=== PATIENT | female | born 1995 | race Hispanic/Latino ===

== ENCOUNTER 2018-07-18 04:16 | Inpatient (IN) | payer MEDICAID, OTHER ==
[2018-07-18 04:55] LABS: Hematocrit 40.4 % (30.3-42.9); Hemoglobin 13.9 gm/dl (10.1-14.3); Mean Corpuscular HGB Conc 34 % (30-34); Mean Corpuscular Volume 89 fl (79-97); Platelet Count 327 K/mm3 (140-440); Red Blood Count 4.56 M/mm3 (3.65-5.03); Red Cell Distribution Width 13.5 % (13.2-15.2)
[2018-07-18 05:03] LABS: Bilirubin,Urine NEG (Negative); Blood,Urine SM (Negative); Color,Urine Yellow (Yellow); Mucus,Urine 3+ /HPF
[2018-07-18 05:07] LABS: Benzodiazepines Screen,Urine PRESUMPTIVE NEGATIVE; Cannabinoid Screen,Urine PRESUMPTIVE NEGATIVE; Cocaine Screen,Urine PRESUMPTIVE NEGATIVE; Methadone Screen,Urine PRESUMPTIVE NEGATIVE
[2018-07-18 05:10] LABS: BUN/Creatinine Ratio 12; Blood Urea Nitrogen 7 mg/dL (7-17); Calcium 8.9 mg/dL (8.4-10.2); Hemolysis Index 4
[2018-07-18 05:23] LABS: Amphetamine Screen,Urine PRESUMPTIVE POSITIVE; Opiate Screen,Urine PRESUMPTIVE POSITIVE
--- NOTE | 2018-07-18 07:03 | Emergency Department Report ---
ED Female HPI - General Chief complaint: Skin/Abscess/Foreign Body Stated complaint: FB IN VAGINA Time Seen by Provider: 07/18/18 06:59 Source: patient, EMS Mode of arrival: Ambulatory Limitations: No Limitations - History of Present Illness Initial comments: 22-year-old female is in police custody for purportedly as she told the police inserting a bag filled with heroin in her vagina. The patient herself is very vague about when this was done and if it is still there. She denies heroin or methamphetamine use herself. However on my encounter she has a heart rate which is in the 130s and persistent. She is not complaining of any specific symptoms. She states that she is 18 weeks and has not gone to an OB doctor yet. The patient had screening labs and an ultrasound ordered before I came. I called the ultrasound department to advise them that a transvaginal probe should not be utilized. Are you Now?: Yes Associated Symptoms: denies other symptoms - Related Data Allergies Allergy/AdvReac Type Severity Reaction Status Date / Time No Known Allergies Allergy Unverified 07/18/18 04:31 ED Review of Systems ROS: Stated complaint: FB IN VAGINA Other details as noted in HPI Constitutional: denies: chills, fever Eyes: denies: eye pain, eye discharge, vision change ENT: denies: ear pain, throat pain Respiratory: denies: cough, shortness of breath, wheezing Cardiovascular: denies: chest pain, palpitations Endocrine: no symptoms reported Gastrointestinal: denies: abdominal pain, nausea, diarrhea Genitourinary: denies: urgency, dysuria, discharge Musculoskeletal: denies: back pain, joint swelling, arthralgia Skin: denies: rash, lesions Neurological: denies: headache, weakness, paresthesias Psychiatric: denies: anxiety, depression Hematological/Lymphatic: denies: easy bleeding, easy bruising ED Past Medical Hx - Past Medical History Previous Medical History?: Yes Hx Asthma: Yes - Surgical History Past Surgical History?: No - Social History Smoking Status: Never Smoker Substance Use Type: None ED Physical Exam - General Limitations: No Limitations General appearance: alert, in no apparent distress - Head Head exam: Present: atraumatic, normocephalic - Eye Eye exam: Present: normal appearance. Absent: scleral icterus - ENT ENT exam: Present: mucous membranes moist - Neck Neck exam: Present: normal inspection. Absent: tenderness, meningismus - Respiratory Respiratory exam: Present: normal lung sounds bilaterally. Absent: respiratory distress - Cardiovascular Cardiovascular Exam: Present: normal rhythm, tachycardia. Absent: systolic murmur, diastolic murmur, rubs, gallop - GI/Abdominal GI/Abdominal exam: Present: soft, normal bowel sounds. Absent: distended, tenderness, guarding, rebound - External exam: Present: normal external exam Speculum exam: Present: vaginal discharge, cervical discharge Bi-manual exam: Present: normal bi-manual exam, other (no foreign body found) - Extremities Exam Extremities exam: Present: normal inspection - Back Exam Back exam: Present: normal inspection - Neurological Exam Neurological exam: Present: alert, oriented X3, CN II-XII intact. Absent: motor sensory deficit - Psychiatric Psychiatric exam: Present: normal affect, normal mood - Skin Skin exam: Present: warm, dry, intact, normal color. Absent: rash ED Course Vital Signs 07/18/18 04:24 Temperature 98.6 F Pulse Rate 117 H Respiratory 15 Rate O2 Sat by Pulse 98 Oximetry - Reevaluation(s) Reevaluation #1: The officer attended the examination. This was for chain of custody if a spe cimen was found. There was no foreign body found. I spoke to Dr. Everett who agreed to follow the patient along. He had no specific recommendations at this point. I spoke to the hospitalist who assigned the patient to Dr. Solomon. The patient is admitted to the hospitalist service. 07/18/18 08:34 ED Medical Decision Making - Lab Data Result diagrams: 07/18/18 04:40 07/18/18 04:40 Laboratory Results - last 24 hr 07/18/18 07/18/18 07/18/18 04:40 04:40 04:40 WBC 11.3 H RBC 4.56 Hgb 13.9 Hct 40.4 MCV 89 MCH 31 MCHC 34 RDW 13.5 Plt Count 327 Sodium 137 Potassium 4.2 Chloride 102.7 Carbon Dioxide 22 Anion Gap 17 BUN 7 Creatinine 0.6 L Estimated GFR > 60 BUN/Creatinine Ratio 12 Glucose 86 Calcium 8.9 Total Creatine Kinase 30 HCG, Quant 84328 H Urine Color Urine Turbidity Urine pH Ur Specific [place] Urine Protein Urine Glucose (UA) Urine Ketones Urine Blood Urine Nitrite Urine Bilirubin Urine Urobilinogen Ur Leukocyte Esterase Urine WBC (Auto) Urine RBC (Auto) U Epithel Cells (Auto) Urine Mucus Salicylates Urine Opiates Screen Urine Methadone Screen Acetaminophen Ur Barbiturates Screen Ur Phencyclidine Scrn Ur Amphetamines Screen U Benzodiazepines Scrn Urine Cocaine Screen U Marijuana (THC) Screen Drugs of Abuse Note Plasma/Serum Alcohol 07/18/18 07/18/18 07/18/18 04:40 04:40 04:40 WBC RBC Hgb Hct MCV MCH MCHC RDW Plt Count Sodium Potassium Chloride Carbon Dioxide Anion Gap BUN Creatinine Estimated GFR BUN/Creatinine Ratio Glucose Calcium Total Creatine Kinase HCG, Quant Urine Color Urine Turbidity Urine pH Ur Specific [place] Urine Protein Urine Glucose (UA) Urine Ketones Urine Blood Urine Nitrite Urine Bilirubin Urine Urobilinogen Ur Leukocyte Esterase Urine WBC (Auto) Urine RBC (Auto) U Epithel Cells (Auto) Urine Mucus Salicylates < 0.3 L Urine Opiates Screen Urine Methadone Screen Acetaminophen < 5.0 L Ur Barbiturates Screen Ur Phencyclidine Scrn Ur Amphetamines Screen U Benzodiazepines Scrn Urine Cocaine Screen U Marijuana (THC) Screen Drugs of Abuse Note Plasma/Serum Alcohol < 0.01 07/18/18 07/18/18 Unknown Unknown WBC RBC Hgb Hct MCV MCH MCHC RDW Plt Count Sodium Potassium Chloride Carbon Dioxide Anion Gap BUN Creatinine Estimated GFR BUN/Creatinine Ratio Glucose Calcium Total Creatine Kinase HCG, Quant Urine Color Yellow Urine Turbidity Slightly-cloudy Urine pH 5.0 Ur Specific [place] 1.025 Urine Protein 100 mg/dl Urine Glucose (UA) Neg Urine Ketones Neg Urine Blood Sm Urine Nitrite Neg Urine Bilirubin Neg Urine Urobilinogen 4.0 Ur Leukocyte Esterase Mod Urine WBC (Auto) 25.0 H Urine RBC (Auto) 6.0 U Epithel Cells (Auto) < 1.0 Urine Mucus 3+ Salicylates Urine Opiates Screen Presumptive positive Urine Methadone Screen Presumptive negative Acetaminophen Ur Barbiturates Screen Presumptive negative Ur Phencyclidine Scrn Presumptive negative Ur Amphetamines Screen Presumptive positive U Benzodiazepines Scrn Presumptive negative Urine Cocaine Screen Presumptive negative U Marijuana (THC) Screen Presumptive negative Drugs of Abuse Note Disclamer Plasma/Serum Alcohol - EKG Data EKG shows normal: sinus rhythm, axis, intervals, QRS complexes, ST-T waves Rate: tachycardia - EKG Data Interpretation: nonspecific ST-T wave rocio Critical care attestation.: If time is entered above; I have spent that time in minutes in the direct care of this critically ill patient, excluding procedure time. ED Disposition Clinical Impression: 18 weeks gestation of Overdose Qualifiers: Encounter type: initial encounter Injury intent: accidental or unintentional Qualified Code(s): T50.901A - Poisoning by unspecified drugs, medicaments and biological substances, accidental (unintentional), initial encounter Vaginitis Qualifiers: Chronicity: acute Qualified Code(s): N76.0 - Acute vaginitis UTI (urinary tract infection) Qualifiers: Urinary tract infection type: site unspecified Hematuria presence: without hematuria Qualified Code(s): N39.0 - Urinary tract infection, site not specified Disposition: 09 OP ADMIT IP TO THIS HOSP Is pt being admited?: No Does the pt Need Aspirin: No Condition: Stable Referrals: PRIMARY CARE, [Primary Care Provider] - 3-5 Days Time of Disposition: 08:36
[2018-07-18] MEDS ORDERED: NACL 0.9% 1000 ML 1,000 ML IV ONE ×2 (07:37→08:25)
[2018-07-18 08:21] LABS: Creatine Kinase MB 1.6 ng/mL (0.0-4.0)
[2018-07-18 08:22] LABS: INR 0.88 (0.87-1.13)
[2018-07-18 08:23] LABS: Alanine Aminotransferase 13 units/L (7-56); Albumin 3.3 g/dL (3.9-5); Partial Thromboplastin Time 27.4 Sec. (24.2-36.6)
[2018-07-18 08:34] LABS: Bilirubin,Direct < 0.2 mg/dL (0-0.2)
--- NOTE | 2018-07-18 08:37 | Ultrasound Report ---
EXAM: US OB >= 14 WEEKS FETUS HISTORY: TECHNIQUE: Birch scale imaging, duplex Doppler and color flow Doppler imaging are performed with a cur vilinear transducer. COMPARISON: None available. FINDINGS: There is a single IUP in transverse lie, with head to the maternal left side. The estimated fet al heart rate is 156 beats per minute. No gross anomaly is seen at this time. The lateral ventr icles, dorsal spine, stomach, kidneys, urinary bladder, diaphragm, four-chamber heart, three-vessel c ord, and cord insertion are seen. The following biometric measurements are obtained: BPD 3.94 cm (18 weeks 0 days ) HC 15.56 cm (18 weeks 3 days) AC 12.66 cm (18 weeks 2 days ) FL 2.62 cm (18 weeks 0 days ) The estimated composite gestational age is 18 weeks, 1 day, plus/minus standard deviation. The LEONEL is 12/18/2018. The biometric ratios are within normal limits: Cephalic index 85.9; HC/AC 1.23; FL/BPD 66 .5; FL/HC 16.8; FL/AC 20.7. There is a fundal placenta, without evidence for placenta previa or abruption. The cervical length is mildly foreshortened, measuring approximately 2.8 cm. There is no evidence for cervical incompetence . The amniotic fluid volume is within normal limits; largest AP fluid pocket measures 4.2 cm. The right ovary is within normal limits, measuring approximately 2.1 cm x 1.6 cm x 2.1 cm. There is a n approximately 1.1 cm x 5 mm x 1 cm right ovarian cyst. The left ovary is not visualized. No free fl uid is seen in the pelvis. IMPRESSION: 1. Single live IUP in transverse presentation, with head to the maternal left side. 2. Estimated gestational age of 18 weeks, 1 day plus/minus standard deviation. The LEONEL is 12/18/2018. 3. The estimated heart rate is 156 beats per minute. 4. No gross anomaly is seen at this time (Limited views of anatomy). 5. Fundal placenta without evidence for placental previa or abruption. 6. The amniotic fluid volume is within normal limits. 7. The cervical length is mildly foreshortened, measuring 2.8 cm; no evidence for cervical incompete nce. 8. Approximately 1.1 cm x 5 mm x 1 cm right ovarian cyst; otherwise unremarkable right ovary. Left ov mickey not visualized. 9. No free fluid is seen in the pelvis. This document is electronically signed by Rosita Grijalva MD., July 18 2018 08:35:10 AM ET
[2018-07-18] MEDS ORDERED: ZITHROMAX PO ONE (09:32)
[2018-07-18] MEDS ORDERED: ROCEPHIN/NS 1 GM/50 ML 1 GM/50 ML BAG IV ONE ×2 (09:32→11:34)
--- NOTE | 2018-07-18 09:37 | History and Physical Report ---
History of Present Illness Date of examination: 07/18/18 Date of admission: 07/18/18 Chief complaint: Police custody evaluation for drug/heroin inserted in her vagina History of present illness: This is a 22-year-old female who presents to the emergency department in police custody for reportedly inserting a bag filled with heroin in her vagina. The patient herself is very vague about when this was done and if it is still there. ER physician examined patient and noted that there were no contents/heroin in her vaginal cavity. The patient denies any heroin or methamphetamine use. Patient states that she is around her boyfriend and friends that smoked 2 drugs and may have acquired some secondhand contact. Patient denies any chest pain or shortness of breath. No headache or visual disturbances. Patient states that she is here only because of police custody. ER physician reports heart rate persistently in the 130s. Past History Past Medical History: No medical history Past Surgical History: No surgical history Social history: no significant social history Family history: no significant family history Medications and Allergies Allergies Allergy/AdvReac Type Severity Reaction Status Date / Time No Known Allergies Allergy Unverified 07/18/18 04:31 Active Meds: Active Medications Sodium Chloride (Nacl 0.9% 1000 Ml) 1,000 mls @ 999 mls/hr IV BOLUS ONE Stop: 07/18/18 09:25 Review of Systems All systems: negative Exam - Constitutional Vitals: Temp Pulse Resp BP Pulse Ox 98.6 F 117 H 15 98 07/18/18 04:24 07/18/18 04:24 07/18/18 04:24 07/18/18 04:24 General appearance: Present: no acute distress, well-nourished - EENT Eyes: Present: PERRL ENT: hearing intact, clear oral mucosa - Neck Neck: Present: supple, normal ROM - Respiratory Respiratory effort: normal Respiratory: bilateral: CTA - Cardiovascular Heart Sounds: Present: S1 & S2. Absent: rub, click - Extremities Extremities: pulses symmetrical, No edema Peripheral Pulses: within normal limits - Abdominal General gastrointestinal: Present: soft, non-tender, non-distended, normal bowel sounds Female genitourinary: Present: normal - Integumentary Integumentary: Present: clear, warm, dry - Musculoskeletal Musculoskeletal: gait normal, strength equal bilaterally - Psychiatric Psychiatric: appropriate mood/affect, intact judgment & insight - Neurologic Neurologic: CNII-XII intact, moves all extremities Results - Labs CBC & Chem 7: 07/18/18 04:40 07/18/18 04:40 Labs: Laboratory Last Values WBC 11.3 K/mm3 (4.5-11.0) H 07/18/18 04:40 RBC 4.56 M/mm3 (3.65-5.03) 07/18/18 04:40 Hgb 13.9 gm/dl (10.1-14.3) 07/18/18 04:40 Hct 40.4 % (30.3-42.9) 07/18/18 04:40 MCV 89 fl (79-97) 07/18/18 04:40 MCH 31 pg (28-32) 07/18/18 04:40 MCHC 34 % (30-34) 07/18/18 04:40 RDW 13.5 % (13.2-15.2) 07/18/18 04:40 Plt Count 327 K/mm3 (140-440) 07/18/18 04:40 PT 12.5 Sec. (12.2-14.9) 07/18/18 07:52 INR 0.88 (0.87-1.13) 07/18/18 07:52 APTT 27.4 Sec. (24.2-36.6) 07/18/18 07:52 Sodium 137 mmol/L (137-145) 07/18/18 04:40 Potassium 4.2 mmol/L (3.6-5.0) 07/18/18 04:40 Chloride 102.7 mmol/L (98-107) 07/18/18 04:40 Carbon Dioxide 22 mmol/L (22-30) 07/18/18 04:40 Anion Gap 17 mmol/L 07/18/18 04:40 BUN 7 mg/dL (7-17) 07/18/18 04:40 Creatinine 0.6 mg/dL (0.7-1.2) L 07/18/18 04:40 Estimated GFR > 60 ml/min 07/18/18 04:40 BUN/Creatinine Ratio 12 % 07/18/18 04:40 Glucose 86 mg/dL (65-100) 07/18/18 04:40 Lactic Acid 1.00 mmol/L (0.7-2.0) 07/18/18 07:52 Calcium 8.9 mg/dL (8.4-10.2) 07/18/18 04:40 Magnesium 2.00 mg/dL (1.7-2.3) 07/18/18 07:52 Total Bilirubin 0.20 mg/dL (0.1-1.2) 07/18/18 07:52 Direct Bilirubin < 0.2 mg/dL (0-0.2) 07/18/18 07:52 Indirect Bilirubin 0.0 mg/dL 07/18/18 07:52 AST 10 units/L (5-40) 07/18/18 07:52 ALT 13 units/L (7-56) 07/18/18 07:52 Alkaline Phosphatase 47 units/L (35-129) 07/18/18 07:52 Total Creatine Kinase 29 units/L (30-135) L 07/18/18 07:52 CK-MB (CK-2) 1.6 ng/mL (0.0-4.0) 07/18/18 07:52 CK-MB (CK-2) Rel Index 5.5 (0-4) H 07/18/18 07:52 Troponin T < 0.010 ng/mL (0.00-0.029) 07/18/18 07:52 NT-Pro-B Natriuret Pep 63.26 pg/mL (0-450) 07/18/18 07:52 Total Protein 6.5 g/dL (6.3-8.2) 07/18/18 07:52 Albumin 3.3 g/dL (3.9-5) L 07/18/18 07:52 Albumin/Globulin Ratio 1.0 % 07/18/18 07:52 HCG, Quant 53137 mIU/mL (0-4) H 07/18/18 04:40 Urine Color Yellow (Yellow) 07/18/18 Unknown Urine Turbidity Slightly-cloudy (Clear) 07/18/18 Unknown Urine pH 5.0 (5.0-7.0) 07/18/18 Unknown Ur Specific [place] 1.025 (1.003-1.030) 07/18/18 Unknown Urine Protein 100 mg/dl mg/dL (Negative) 07/18/18 Unknown Urine Glucose (UA) Neg mg/dL (Negative) 07/18/18 Unknown Urine Ketones Neg mg/dL (Negative) 07/18/18 Unknown Urine Blood Sm (Negative) 07/18/18 Unknown Urine Nitrite Neg (Negative) 07/18/18 Unknown Urine Bilirubin Neg (Negative) 07/18/18 Unknown Urine Urobilinogen 4.0 mg/dL (<2.0) 07/18/18 Unknown Ur Leukocyte Esterase Mod (Negative) 07/18/18 Unknown Urine WBC (Auto) 25.0 /HPF (0.0-6.0) H 07/18/18 Unknown Urine RBC (Auto) 6.0 /HPF (0.0-6.0) 07/18/18 Unknown U Epithel Cells (Auto) < 1.0 /HPF (0-13.0) 07/18/18 Unknown Urine Mucus 3+ /HPF 07/18/18 Unknown Salicylates < 0.3 mg/dL (2.8-20.0) L 07/18/18 04:40 Urine Opiates Screen Presumptive positive 07/18/18 Unknown Urine Methadone Screen Presumptive negative 07/18/18 Unknown Acetaminophen < 5.0 ug/mL (10.0-30.0) L 07/18/18 04:40 Ur Barbiturates Screen Presumptive negative 07/18/18 Unknown Ur Phencyclidine Scrn Presumptive negative 07/18/18 Unknown Ur Amphetamines Screen Presumptive positive 07/18/18 Unknown U Benzodiazepines Scrn Presumptive negative 07/18/18 Unknown Urine Cocaine Screen Presumptive negative 07/18/18 Unknown U Marijuana (THC) Screen Presumptive negative 07/18/18 Unknown Drugs of Abuse Note Disclamer 07/18/18 Unknown Plasma/Serum Alcohol < 0.01 % (0-0.07) 07/18/18 04:40 Assessment and Plan Assessment and plan: Persistent sinus tachycardia. Etiology likely secondary to methamphetamine/drug use. Patient will be monitored on telemetry. IV fluid hydration with normal saline. Supportive care. 18 weeks . [facility] [employer] [facility] has been consult and will follow along with the patient. I discussed the case with Dr. Yogesh Everett. UTI. Continue Rocephin daily. Follow-up urine culture.
[2018-07-18] MEDS ORDERED: ZOFRAN IV PRN (09:51)
[2018-07-18] MEDS ORDERED: SODIUM CHLORIDE FLUSH SYRINGE 10 ML IV PRN (09:51)
[2018-07-18] MEDS ORDERED: TYLENOL PO PRN (09:51)
[2018-07-18] MEDS ORDERED: ZITHROMAX ONE ×2 (11:34→11:35)
--- NOTE | 2018-07-18 12:31 | Consultation ---
History of Present Illness Consult date: 07/18/18 Requesting physician: AMBIKA LEGER Reason for consult: other () History of present illness: Pt is a 22-year-old WF LMP 04/03/18 who presents to the emergency department in police custody for reportedly inserting a bag filled with heroin in her vagina. The patient herself is very vague about when this was done and if it is still there. ER physician examined patient and noted that there were no contents/heroin in her vaginal cavity. The patient denies any heroin or methamphetamine use. Patient states that she is around her boyfriend and friends that smoked 2 drugs and may have acquired some secondhand contact. Patient denies any chest pain or shortness of breath. No headache or visual disturbances. Patient states that she is here only because of police custody. ER physician reports heart rate persistently in the 130s. She has not begun care, but denies bleeding or contractions. Past History Past Medical History: no pertinent history Past Surgical History: no surgical history Family/Genetic History: none Social history: no significant social history, single - Obstetrical History Expected Date of Delivery: 12/18/18 Actual Gestation: 18 Week(s) 1 Day(s) Medications and Allergies Allergies Allergy/AdvReac Type Severity Reaction Status Date / Time No Known Allergies Allergy Verified 07/18/18 09:55 Home Medications Medication Instructions Recorded Confirmed Last Taken Type No Known Home Medications [No 07/18/18 07/18/18 Unknown History Reported Home Medications] Active Meds: Active Medications Acetaminophen (Tylenol) 650 mg PO Q4H PRN PRN Reason: Pain MILD(1-3)/Fever >100.5/COYNE Ondansetron HCl (Zofran) 4 mg IV Q8H PRN PRN Reason: Nausea And Vomiting Sodium Chloride (Sodium Chloride Flush Syringe 10 Ml) 10 ml IV BID CINDI Sodium Chloride (Sodium Chloride Flush Syringe 10 Ml) 10 ml IV PRN PRN PRN Reason: LINE FLUSH Review of Systems All systems: negative - Vital Signs Vital signs: Vital Signs Temp Pulse Resp Pulse Ox 98.6 F 117 H 15 98 07/18/18 04:24 07/18/18 04:24 07/18/18 04:24 07/18/18 04:24 Temp Pulse Resp BP Pulse Ox 98.6 F 96 H 22 121/72 100 07/18/18 04:24 07/18/18 10:30 07/18/18 10:30 07/18/18 10:30 07/18/18 08:30 - Physical Exam Breasts: Positive: deferred Cardiovascular: Regular rate Lungs: Positive: Clear to auscultation Abdomen: Positive: normal appearance Genitourinary (Female): Positive: normal external genitalia Vagina: Positive: normal moisture Uterus: Positive: enlarged Extremities: Positive: normal - Obstetrical FHR: auscultation normal Uterine Contraction Pattern: Absent Results Result Diagrams: 07/18/18 04:40 07/18/18 04:40 Abnormal lab results 07/18/18 07/18/18 07/18/18 Range/Units 04:40 04:40 04:40 WBC 11.3 H (4.5-11.0) K/mm3 Creatinine 0.6 L (0.7-1.2) mg/dL Total Creatine Kinase (30-135) units/L CK-MB (CK-2) Rel Index (0-4) Albumin (3.9-5) g/dL HCG, Quant 01140 H (0-4) mIU/mL Urine WBC (Auto) (0.0-6.0) /HPF Salicylates (2.8-20.0) mg/dL Acetaminophen (10.0-30.0) ug/mL 07/18/18 07/18/18 07/18/18 Range/Units 04:40 04:40 07:52 WBC (4.5-11.0) K/mm3 Creatinine (0.7-1.2) mg/dL Total Creatine Kinase 29 L (30-135) units/L CK-MB (CK-2) Rel Index 5.5 H (0-4) Albumin 3.3 L (3.9-5) g/dL HCG, Quant (0-4) mIU/mL Urine WBC (Auto) (0.0-6.0) /HPF Salicylates < 0.3 L (2.8-20.0) mg/dL Acetaminophen < 5.0 L (10.0-30.0) ug/mL 07/18/18 Range/Units Unknown WBC (4.5-11.0) K/mm3 Creatinine (0.7-1.2) mg/dL Total Creatine Kinase (30-135) units/L CK-MB (CK-2) Rel Index (0-4) Albumin (3.9-5) g/dL HCG, Quant (0-4) mIU/mL Urine WBC (Auto) 25.0 H (0.0-6.0) /HPF Salicylates (2.8-20.0) mg/dL Acetaminophen (10.0-30.0) ug/mL All other labs normal. Ultrasound: report reviewed Assessment and Plan - Patient Problems (1) 18 weeks gestation of Onset Date: 07/18/18 Current Visit: Yes Status: Acute Plan to address problem: A: IUP @ 18 1/7 weeks Drug use P: Agree with current admission for Observation No obstetrical intervention needed at this time She can follow up in my office next week upon discharge (2) Overdose Onset Date: 07/18/18 Current Visit: Yes Status: Acute Qualifiers: Encounter type: initial encounter Injury intent: accidental or unintentional Qualified Code(s): T50.901A - Poisoning by unspecified drugs, medicaments and biological substances, accidental (unintentional), initial encounter
[2018-07-18] MEDS ORDERED: PROVENTIL IH PRN (12:59)
[2018-07-19 06:02] LABS: Basophils % (Auto) 0.2 % (0.0-1.8); Eosinophils % (Auto) 0.3 % (0.0-4.3); Hematocrit 36.1 % (30.3-42.9); Hemoglobin 12.4 gm/dl (10.1-14.3); Lymphocytes # (Auto) 1.7 K/mm3 (1.2-5.4); Lymphocytes % (Auto) 20.9 % (13.4-35.0); Mean Corpuscular HGB Conc 35 % (30-34); Mean Corpuscular Volume 89 fl (79-97); Monocytes # (Auto) 0.5 K/mm3 (0.0-0.8); Monocytes % (Auto) 6.4 % (0.0-7.3); Platelet Count 271 K/mm3 (140-440); Red Blood Count 4.07 M/mm3 (3.65-5.03); Red Cell Distribution Width 13.6 % (13.2-15.2)
[2018-07-19 06:30] LABS: BUN/Creatinine Ratio 13; Blood Urea Nitrogen 4 mg/dL (7-17); Calcium 8.7 mg/dL (8.4-10.2); Hemolysis Index 22
[2018-07-19] MEDS: SODIUM CHLORIDE FLUSH SYRINGE 10 ML IV SCH ×3 (09:03→22:38)
--- NOTE | 2018-07-19 10:32 | Progress Note ---
Assessment and Plan Assessment and plan: Persistent sinus tachycardia. Etiology likely secondary to methamphetamine/drug use. Continue IV fluid hydration. Supportive care. Consider echocardiogram. Cardiology consultation. IUP @ 18 05/17 weeks. 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 Continue Rocephin daily. Follow-up urine culture. History Interval history: No new issues overnight. Patient remains tachycardic. Hospitalist Physical - Constitutional Vitals: Temp Pulse Resp BP Pulse Ox 98.0 F 127 H 18 120/79 96 07/19/18 07:41 07/19/18 07:41 07/19/18 07:41 07/19/18 07:41 07/19/18 07:41 General appearance: Present: no acute distress, well-nourished - EENT Eyes: Present: PERRL, EOM intact ENT: hearing intact, clear oral mucosa, dentition normal - Neck Neck: Present: supple, normal ROM - Respiratory Respiratory effort: normal Respiratory: bilateral: CTA - Cardiovascular Rhythm: regular Heart Sounds: Present: S1 & S2. Absent: gallop, rub - Extremities Extremities: no ischemia, No edema, Full ROM - Abdominal General gastrointestinal: soft, non-tender, non-distended, normal bowel sounds - Integumentary Integumentary: Present: clear, warm, dry - Neurologic Neurologic: CNII-XII intact, moves all extremities Results - Labs CBC & Chem 7: 07/19/18 04:37 07/19/18 04:37 Labs: Laboratory Last Values WBC 8.0 K/mm3 (4.5-11.0) 07/19/18 04:37 RBC 4.07 M/mm3 (3.65-5.03) 07/19/18 04:37 Hgb 12.4 gm/dl (10.1-14.3) 07/19/18 04:37 Hct 36.1 % (30.3-42.9) 07/19/18 04:37 MCV 89 fl (79-97) 07/19/18 04:37 MCH 31 pg (28-32) 07/19/18 04:37 MCHC 35 % (30-34) H 07/19/18 04:37 RDW 13.6 % (13.2-15.2) 07/19/18 04:37 Plt Count 271 K/mm3 (140-440) 07/19/18 04:37 Lymph % (Auto) 20.9 % (13.4-35.0) 07/19/18 04:37 Lyman % (Auto) 6.4 % (0.0-7.3) 07/19/18 04:37 Eos % (Auto) 0.3 % (0.0-4.3) 07/19/18 04:37 Baso % (Auto) 0.2 % (0.0-1.8) 07/19/18 04:37 Lymph # 1.7 K/mm3 (1.2-5.4) 07/19/18 04:37 Lyman # 0.5 K/mm3 (0.0-0.8) 07/19/18 04:37 Eos # 0.0 K/mm3 (0.0-0.4) 07/19/18 04:37 Baso # 0.0 K/mm3 (0.0-0.1) 07/19/18 04:37 Seg Neutrophils % 72.2 % (40.0-70.0) H 07/19/18 04:37 Seg Neutrophils # 5.8 K/mm3 (1.8-7.7) 07/19/18 04:37 PT 12.5 Sec. (12.2-14.9) 07/18/18 07:52 INR 0.88 (0.87-1.13) 07/18/18 07:52 APTT 27.4 Sec. (24.2-36.6) 07/18/18 07:52 Sodium 139 mmol/L (137-145) 07/19/18 04:37 Potassium 3.9 mmol/L (3.6-5.0) 07/19/18 04:37 Chloride 107.7 mmol/L (98-107) H 07/19/18 04:37 Carbon Dioxide 18 mmol/L (22-30) L 07/19/18 04:37 Anion Gap 17 mmol/L 07/19/18 04:37 BUN 4 mg/dL (7-17) L 07/19/18 04:37 Creatinine 0.3 mg/dL (0.7-1.2) L 07/19/18 04:37 Estimated GFR > 60 ml/min 07/19/18 04:37 BUN/Creatinine Ratio 13 % 07/19/18 04:37 Glucose 87 mg/dL (65-100) 07/19/18 04:37 Lactic Acid 1.00 mmol/L (0.7-2.0) 07/18/18 07:52 Calcium 8.7 mg/dL (8.4-10.2) 07/19/18 04:37 Magnesium 2.00 mg/dL (1.7-2.3) 07/18/18 07:52 Total Bilirubin 0.20 mg/dL (0.1-1.2) 07/18/18 07:52 Direct Bilirubin < 0.2 mg/dL (0-0.2) 07/18/18 07:52 Indirect Bilirubin 0.0 mg/dL 07/18/18 07:52 AST 10 units/L (5-40) 07/18/18 07:52 ALT 13 units/L (7-56) 07/18/18 07:52 Alkaline Phosphatase 47 units/L (35-129) 07/18/18 07:52 Total Creatine Kinase 29 units/L (30-135) L 07/18/18 07:52 CK-MB (CK-2) 1.6 ng/mL (0.0-4.0) 07/18/18 07:52 CK-MB (CK-2) Rel Index 5.5 (0-4) H 07/18/18 07:52 Troponin T < 0.010 ng/mL (0.00-0.029) 07/18/18 07:52 NT-Pro-B Natriuret Pep 63.26 pg/mL (0-450) 07/18/18 07:52 Total Protein 6.5 g/dL (6.3-8.2) 07/18/18 07:52 Albumin 3.3 g/dL (3.9-5) L 07/18/18 07:52 Albumin/Globulin Ratio 1.0 % 07/18/18 07:52 HCG, Quant 93230 mIU/mL (0-4) H 07/18/18 04:40 Urine Color Yellow (Yellow) 07/18/18 Unknown Urine Turbidity Slightly-cloudy (Clear) 07/18/18 Unknown Urine pH 5.0 (5.0-7.0) 07/18/18 Unknown Ur Specific [place] 1.025 (1.003-1.030) 07/18/18 Unknown Urine Protein 100 mg/dl mg/dL (Negative) 07/18/18 Unknown Urine Glucose (UA) Neg mg/dL (Negative) 07/18/18 Unknown Urine Ketones Neg mg/dL (Negative) 07/18/18 Unknown Urine Blood Sm (Negative) 07/18/18 Unknown Urine Nitrite Neg (Negative) 07/18/18 Unknown Urine Bilirubin Neg (Negative) 07/18/18 Unknown Urine Urobilinogen 4.0 mg/dL (<2.0) 07/18/18 Unknown Ur Leukocyte Esterase Mod (Negative) 07/18/18 Unknown Urine WBC (Auto) 25.0 /HPF (0.0-6.0) H 07/18/18 Unknown Urine RBC (Auto) 6.0 /HPF (0.0-6.0) 07/18/18 Unknown U Epithel Cells (Auto) < 1.0 /HPF (0-13.0) 07/18/18 Unknown Urine Mucus 3+ /HPF 07/18/18 Unknown Salicylates < 0.3 mg/dL (2.8-20.0) L 07/18/18 04:40 Urine Opiates Screen Presumptive positive 07/18/18 Unknown Urine Methadone Screen Presumptive negative 07/18/18 Unknown Acetaminophen < 5.0 ug/mL (10.0-30.0) L 07/18/18 04:40 Ur Barbiturates Screen Presumptive negative 07/18/18 Unknown Ur Phencyclidine Scrn Presumptive negative 07/18/18 Unknown Ur Amphetamines Screen Presumptive positive 07/18/18 Unknown U Benzodiazepines Scrn Presumptive negative 07/18/18 Unknown Urine Cocaine Screen Presumptive negative 07/18/18 Unknown U Marijuana (THC) Screen Presumptive negative 07/18/18 Unknown Drugs of Abuse Note Disclamer 07/18/18 Unknown Plasma/Serum Alcohol < 0.01 % (0-0.07) 07/18/18 04:40
[2018-07-20 07:34] VITALS: BP 115/70
--- NOTE | 2018-07-20 09:01 | Event Note ---
Date: 07/20/18 Chart reviewed, and ECG and vital signs reviewed. There is no cardiac intervention needed for physiologic sinus tachycardia associated with police activity/arrest involving the patient as described in the chart. The tachycardia has now resolved, HR is in the 90s. Cardiology consult deferred. We will be happy to consult on the patient if any subsequent cardiac symptoms or signs are reported or develop. Otherwise we will defer to internal medicine and finishing manager for management of the patients active issues of suspected drug ingestion and . Discussed with Drs. Cross and Quan.
--- NOTE | 2018-07-20 09:01 | Discharge Summary ---
Providers - Providers Date of Admission: 07/18/18 11:05 Date of discharge: 07/20/18 Attending physician: SOPHY ALCOCER MD 07/18/18 08:08 Consult to Physician [CONS] Urgent Comment: DR Cesario FAN NOTIFIED 1000 Consulting Provider: KYUNG FAN Physician Instructions: Reason For Exam: Overdose 18 weeks 07/19/18 10:28 Consult to Cardiology [CONS] Routine Consulting Provider: SHIRAZ LUCIO Reason For Exam: persistent tachycardia Primary care physician: ASSOCIATE MATERIAL HANDLER Hospitalization Reason for admission: tachycardia, drug abuse Condition: Stable Hospital course: This is a 22-year-old female who presents to the emergency department in police custody for reportedly inserting a bag filled with heroin in her vagina. The patient herself is very vague about when this was done and if it is still there. ER physician examined patient and noted that there were no contents/heroin in her vaginal cavity. The patient denies any heroin or methamphetamine use. Patient states that she is around her boyfriend and friends that smoked 2 drugs and may have acquired some secondhand contact. Patient denies any chest pain or shortness of breath. No headache or visual disturbances. Patient states that she is here only because of police custody. ER physician reports heart rate persistently in the 130s. Patient was admitted to the floor and was evaluated by OB and recommended to follow-up with outpatient for ANC care. Patient's tachycardia is getting better now. Patient denied any chest pain, palpitation. Dr. Lucio called me and told me that the heart rate sinus tach and not very high and told me she doesn't need cardiology evaluation and I agreed with his recommendations and cancelled the cardiology consult. patient counselled about cessation of drug use especially while and patient understood and discharged home in a stable condition. Disposition: DC-01 TO HOME OR SELFCARE Time spent for discharge: 32 minutes - Discharge Diagnoses (1) Methamphetamine abuse Status: Acute (2) 18 weeks gestation of Status: Acute Core Measure Documentation - Palliative Care Palliative Care/ Comfort Measures: Not Applicable - Core Measures Any of the following diagnoses?: none Exam - Physical Exam Narrative exam: Not in cardiopulmonary distress. The patient appeared well nourished and normally developed. Vital signs as documented. Head exam is unremarkable. No scleral icterus . Neck is without jugular venous distension, thyromegaly, or carotid bruits. Lungs are clear to auscultation. Cardiac exam reveals regular rate and Rhythm. First and second heart sounds normal. No murmurs, rubs or gallops. Abdominal exam reveals normal bowel sounds, no masses, no organomegaly and no aortic enlargement. Extremities are nonedematous and both femoral and pedal pulses are normal. 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 No focal weakness. - Constitutional Vitals: Temp Pulse Resp BP Pulse Ox 97.9 F 100 H 18 115/70 98 07/20/18 07:32 07/20/18 07:32 07/20/18 07:32 07/20/18 07:32 07/20/18 07:32 Plan Activity: no restrictions Weight Bearing Status: Full Weight Bearing Diet: regular Follow up with: KOSTA CHAIREZ MD [Primary Care Provider] - 3-5 Days KYUNG FAN MD [Staff Physician] - 7 Days
[2018-07-20] MEDS: SODIUM CHLORIDE FLUSH SYRINGE 10 ML IV SCH (09:29)
== END 2018-07-20 10:18 | disposition home or self-care (01) | DRG 832 ==
LOC: ED 04:16 → 4A 11:05
PROVIDERS: ADMIT Hospitalist; ATTEND Internal Medicine
DX: O99.412 Diseases of the circulatory system complicating pregnancy, second trimester (principal); O23.592 Infection of other part of genital tract in pregnancy, second trimester; O99.322 Drug use complicating pregnancy, second trimester; O23.42 Unspecified infection of urinary tract in pregnancy, second trimester; O9A.212 Injury, poisoning and certain other consequences of external causes complicating pregnancy, second trimester; O99.512 Diseases of the respiratory system complicating pregnancy, second trimester; T43.621A Poisoning by amphetamines, accidental (unintentional), initial encounter; R00.0 Tachycardia, unspecified; F15.10 Other stimulant abuse, uncomplicated; J45.909 Unspecified asthma, uncomplicated; Y92.89 Other specified places as the place of occurrence of the external cause; Z3A.18 18 weeks gestation of pregnancy
CPT/HCPCS: 36415; 76805; 80048; 80076; 80307; 80320; 81001; 82140; 82550; 82553; 83735; 83880; 84484; 84702; 85025; 85027; 85610; 85730; 87076; 87086; 87186; 87210; 87591; 93005; 93010; 94640; 94760; G0378; G0480; J0696; J7030